=== PATIENT | female | born 1995 | race Caucasian/White ===

== ENCOUNTER 2020-03-07 13:51 | Emergency (ER) | payer SELFPAY ==
--- NOTE | ~2020-03-07 | CT_ITS ---
EXAMINATION: CT abdomen pelvis wo con DATE: 03/07/2020 15:32 INDICATION: Right flank pain TECHNIQUE: Computed tomography (CT) of the abdomen and pelvis was performed without intravenous contr ast. Automated exposure control and iterative reconstruction technique were employed. Exam dose: 286 .93 mGy-cm total exam DLP. COMPARISON: None. FINDINGS: The lung bases are clear. Normal heart size. No pericardial or pleural effusion. Normal heart size. No pericardial or pleural effusion. No bile duct or pancreatic duct dilatation. The gallbladder is present. No pericholecystic fluid or i nflammation. Normal splenic size. No pancreatic mass lesion or calcification. Normal adrenal glands. No renal mass lesion or renal calculus is detected. No left hydroureteronephrosis is detected. There is mild asymmetric dilatation of the right ureter compared to the left and an approximately 2 mm calc ification in the right distal ureteral area; distal ureteral calculus is not excluded or definitively confirmed. Consider repeat examination with IV contrast material, with KUB before and after IV contr ast material administration.. Normal caliber of the abdominal aorta. No intraperitoneal or retroperitoneal or pelvic mass lesion or adenopathy or ascites. The urinary bladder is unremarkable. Uterus and adnexal areas are unremarkabl e. Normal appendix. 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 Included skeletal structures are unremarkable. IMPRESSION: Cannot exclude distal right ureteral 2 mm calculus; consider [employer] KUB and subsequent CT abdomen pelvis with IV contrast material and postcontrast KUB to follow the CT examination. Malrotation anomaly of the bowel, with left-sided large bowel Reviewed, dictated and finalized at [facility]. Reviewed, dictated and finalized at [facility]. IMPRESSION: Cannot exclude distal right ureteral 2 mm calculus; consider [employer] KUB and subsequent CT abdomen pelvis with IV contrast material and postcontras t KUB to follow the CT examination. Malrotation anomaly of the bowel, with left-sided large bowel
[2020-03-07 13:53] VITALS: BP 130/74; PULSE 60; RESP 20; TEMP 36.9; O2SAT 97
--- NOTE | 2020-03-07 14:19 | ED.GENADULT ---
HPI - General Adult General Chief complaint: Back Pain/Injury Stated complaint: R flank pain Time Seen by Provider: 03/07/20 14:08 Source: patient History of Present Illness HPI narrative: Sudden onset of right flank pain, sharp, stabbing started 1 hour prior to arrival to the emergency room. Patient denies any aggravating or relieving factors. Patient started her menstrual cycle 3 days ago. Patient denies any fever, chills, nausea, vomiting, diarrhea, constipation, urinary symptoms. Patient denies similar symptoms. Patient denies any new or recent physical activities. Related Data Home Medications Medication Instructions Recorded Confirmed norgestimate-ethinyl estradiol tablet 06/24/19 [[id number]] Allergies Allergy/AdvReac Type Severity Reaction Status Date / Time No Known Allergies Allergy Verified 03/07/20 14:04 Review of Systems Review of Systems: Narrative: CONSTITUTIONAL: Denies fever, chills, or sweats. EYES: Denies visual changes, redness, or discharge. ENT: Denies rhinorrhea, congestion, sore throat, or otalgia. CARDIOVASCULAR: Denies chest pain, palpitations, or edema. RESPIRATORY: Denies cough or dyspnea. GASTROINTESTINAL: Denies abdominal pain, nausea, vomiting, or diarrhea. GENITOURINARY: Denies dysuria or hematuria. SKIN: Denies rash or itching. MUSCULOSKELETAL: Denies back pain, joint pain, or myalgia. NEUROLOGIC: Denies headache, numbness, or weakness. PSYCHIATRIC: Denies anxiety or depression. PMFSH Social History Social History Gender identity (if verbalized by the patient): Female Exam Narrative: Exam Narrative: General appearance: Well-developed, well-nourished Skin: Normal color Head: Normocephalic, nontraumatic Eyes: Clear conjunctiva ENT: Oropharynx normal, ears normal, nose normal Neck: Supple, nontender Chest and respiratory: Airway patent, no respiratory distress, no accessory muscle use Heart: Regular rate/rhythm Abdomen: Soft, nontender, no organomegaly, quiet bowel sounds Vascular: Normal peripheral pulses, normal capillary refill. Musculoskeletal: Normal range of motion, nontender back Neurologic: Alert and oriented ?3, [employer] is normal as tested, no gross motor deficit Course Course Emergency Course: Stable Vital Signs Vital signs: Vital Signs Temperature 36.9 C 03/07/20 13:53 Pulse Rate 60 03/07/20 13:53 Respiratory Rate 20 03/07/20 13:53 Blood Pressure 130/74 03/07/20 13:53 Pulse Oximetry 97 03/07/20 13:53 Temperature 36.9 C 03/07/20 13:53 Pulse Rate 60 03/07/20 13:53 Respiratory Rate 20 03/07/20 13:53 Blood Pressure 130/74 03/07/20 13:53 Pulse Oximetry 97 03/07/20 13:53 Medical Decision Making MDM Narrative Medical decision making narrative: Sudden onset of right flank pain. Labs, CT abdomen and pelvis without IV contrast, UA. Further plan to follow Differential Diagnosis Differential Diagnosis: Kidney stone, pyelonephritis, urinary tract infection, muscular strain/sprain, shingles. Vital Signs Vital Signs: Vital Signs Temperature 36.9 C 03/07/20 13:53 Pulse Rate 60 03/07/20 13:53 Respiratory Rate 20 03/07/20 13:53 Blood Pressure 130/74 03/07/20 13:53 Pulse Oximetry 97 03/07/20 13:53 Temperature 36.9 C 03/07/20 13:53 Pulse Rate 60 03/07/20 13:53 Respiratory Rate 20 03/07/20 13:53 Blood Pressure 130/74 03/07/20 13:53 Pulse Oximetry 97 03/07/20 13:53 Critical Care Time Critical Care Time Critical Care Time: No Discharge Plan Discharge Clinical Impression: Kidney stone Patient Disposition: Home, Self-Care Condition: Stable Ins
[2020-03-07] MEDS: KETOROLAC (*BKC) 60 MG/2 ML VIAL IM (14:36)
[2020-03-07 14:53] LABS: Add Urine Microscopic? YES; Appearance Urine Clear (Clear); Bilirubin Urine Negative (Negative); Blood Urine 3+ (Negative); Color Urine Yellow (Yellow); Glucose Urine UA Negative (Negative); Ketones Urine Negative (Negative); Leukocyte Esterase Ur Negative LEU/UL (Negative); Mucus Urine Rare /lpf; Nitrate Urine Negative (Negative); Protein Urine Negative (Negative); RBC Urine 21-50 /hpf (0-2); Specific Grav Ur 1.015 (1.001-1.035); Squamous Epithelial Cell Urine Few /hpf (Few); Urobilinogen Urine Negative mg/dL (<2.0); WBC Urine 0-3 /hpf
[2020-03-07 15:28] LABS: Basophils Absolute Auto 0.1 K/mm3 (0.0-0.1); Basophils Percent Auto 0.7 % (0.2-1.2); Eosinophils Absolute Auto 0.2 K/mm3 (0-0.3); Eosinophils Percent Auto 2.4 % (0-4.4); Hematocrit 38.1 % (37.0-47.0); Hemoglobin 12.1 g/dL (12.0-15.0); Immature Granulocyte Absolute 0.02 K/mm3 (0.00-0.031); Immature Granulocyte Percent A 0.3 % (0-0.5); Lymphocytes Absolute Auto 2.44 K/mm3 (0.9-3.2); Lymphocytes Percent Auto 32.1 % (18.3-44.2); Mean Corpuscular HGB Conc 31.8 g/dl (32-36); Mean Corpuscular Hemoglobin 26.6 pg (26-34); Mean Corpuscular Volume 83.7 fl (80-100); Mean Platelet Volume 10.8 fl (7.4-10.4); Monocytes Absolute Auto 0.5 K/mm3 (0.1-0.6); Monocytes Percent Auto 6.2 % (2.6-8.5); Neutrophils Absolute Auto 4.4 K/mm3 (1.3-6.7); Neutrophils Percent Auto 58.3 % (45.5-73.1); Platelet Count Result 272 k/mm3 (150-375); Red Blood Count 4.55 M/mm3 (4.2-5.4); Red Cell Distribution Width 14.2 % (11.5-14.5); White Blood Count 7.6 K/mm3 (4.5-10.0)
[2020-03-07 15:39] LABS: Alanine Aminotransferase 14 U/L (4-35); Albumin Level 4.3 g/dL (3.5-5.1); Alkaline Phosphatase 69 U/L (38-126); Anion Gap 7 mmol/L (8-16); Aspartate Amino Transferase 20 U/L (14-36); Bilirubin,Total 0.3 mg/dL (0.2-1.3); Blood Urea Nitrogen 12 mg/dL (7-17); Calcium 9.1 mg/dL (8.4-10.2); Carbon Dioxide 24 mmol/L (22-30); Chloride 105 mmol/L (98-107); Estimated CRCL calculation 116 ml/min; Estimated Glomerular Filt Rate > 60; Glucose 106 mg/dL (65-105); Lipase 42 U/L (23-300); Potassium 3.7 mmol/L (3.4-5.0); Sodium 136 mmol/L (137-145)
[2020-03-07] MEDS: ONDANSETRON INJ 4 MG/2 ML VIAL IV PUSH (16:49)
[2020-03-07] MEDS: MORPHINE SULFATE 4 MG/ML INJ IV PUSH (16:49)
[2020-03-07 16:55] VITALS: BP 120/65; PULSE 62; RESP 18; O2SAT 99
== END 2020-03-07 16:56 | disposition home or self-care (01) ==
PROVIDERS: Physician Assistant; Emergency Provider Emergency Medicine; PCP Family Medicine
DX: N20.0 Calculus of kidney (principal)
CPT/HCPCS: 36415; 74176; 80053; 81001; 81025; 83690; 85025; 96372; 96374; 96375; 99284; J1885; J2270; J2405